=== PATIENT | male | born 1965 | race Caucasian/White ===

== ENCOUNTER 2024-10-31 09:47 | Outpatient (CLI) | payer OTHER, SELFPAY ==
--- NOTE | ~2024-10-31 | XR_ITS ---
XR hand RT min 3V 10/31/2024 10:03 Indication: Hand fractures Procedure: 3 views right hand Comparison: No prior studies for comparison. Findings: There are displaced fractures proximal aspect of the third and fourth metacarpals. Cannot e xclude intra-articular extension. There are metacarpal neck fractures of the second and fifth digits with mild volar angulation and displacement. There is polyarticular osteoarthritis. Impression: 1: Fractures involving the bases of the third and fourth metacarpals as well as the neck of the secon d and fifth metacarpals distally. Reviewed, dictated and finalized at location A. Impression: 1: Fractures involving the bases of the third and fourth metacarpals as well as the neck of the second and fifth metacarpals distally.
== END 2024-10-31 09:48 | disposition home or self-care (01) ==
LOC: ANHIMG 09:52
PROVIDERS: Visit Provider Plastic Surgery
DX: S62.342A Nondisplaced fracture of base of third metacarpal bone, right hand, initial encounter for closed fracture (principal); S62.346A Nondisplaced fracture of base of fifth metacarpal bone, right hand, initial encounter for closed fracture; S62.360A Nondisplaced fracture of neck of second metacarpal bone, right hand, initial encounter for closed fracture; S62.366A Nondisplaced fracture of neck of fifth metacarpal bone, right hand, initial encounter for closed fracture; X58.XXXA Exposure to other specified factors, initial encounter
CPT/HCPCS: 73130